=== PATIENT | male | born 1980 | race Caucasian/White ===

== ENCOUNTER 2017-07-19 07:50 | Emergency (ER) | payer OTHER, SELFPAY ==
[2017-07-19 07:51] VITALS: BP 153/91; PULSE 113; RESP 18; TEMP 37.6; O2SAT 98; BMI 35.3
[2017-07-19 07:56] VITALS: O2SAT 98
[2017-07-19] MEDS: Albuterol 2.5 MG/3 ML VIAL.NEB. INHALATION (08:12)
[2017-07-19 08:13] VITALS: PULSE 104; RESP 30; O2SAT 98
--- NOTE | 2017-07-19 08:14 | ED.DCSUM_ITS ---
- ER Visit Summary Date of Service: 07/19/17 Chief Complaint: [] Cough, fatigue History of Present Illness: The patient is a 37 M [] complaining of productive cough beginning yesterday. Patient was reportedly seen in the [place] emergency department and had a negative flu swab and a negative chest x-ray and was discharged on prednisone and an albuterol inhaler. He reports he is feeling worse and reports that he had a similar episode last year that was ultimately diagnosed as pneumonia. He is requesting further evaluation and treatment. Denies fevers. Reports malaise. Patient reports he is a smoker. Physical Examination: [] Afebrile, vital signs stable. 37-year-old male in no acute distress. Cardiovascular exam is regular rate and rhythm. Lungs are clear to auscultation with decreased breath sounds at the bases. Abdomen is soft and nontender. No lower extremity edema. Test Results: [] None. Emergency Department Course and Treatment: [] In light of the negative reported workup yesterday, patient will be treated for bronchitis with one albuterol aerosol, 500 mg orally of azithromycin, 60 mg p.o. prednisone. He will be given a prescription for azithromycin 250 mg #4. He will continue take his prednisone as previously prescribed as well as the albuterol. Treatment Plan: [] Discharge home on outpatient antibiotics with encouraged PCP follow-up. Disposition: [] Discharge, stable. Impression: [] Bronchitis This note was generated with [employer] dictation software. It may contain incorrect words, spelling, and punctuation that were not noted in review of the chart prior to signing ED Disposition - Plan for ED Patient: Chief Complaint: Cough Referrals: Care Physician,No Primary [Primary Care Provider] -
--- NOTE | 2017-07-19 08:14 | ED.DEP ---
ED Disposition - Plan for ED Patient: Disposition: Home or Assisted Living Chief Complaint: Cough Instructions: ED Upper Resp Infec Abx Tx Prescriptions: Azithromycin 250 mg PO DAILY #4 tab Referrals: Care Physician,No Primary [Primary Care Provider] -
[2017-07-19] MEDS: Azithromycin 250 MG Tablet 500 MG PO (08:30)
[2017-07-19] MEDS: predniSONE 20 MG Tablet 60 MG PO (08:30)
[2017-07-19 08:32] VITALS: BP 138/74; PULSE 81; RESP 17; O2SAT 97
== END 2017-07-19 08:33 | disposition home or self-care (01) ==
PROVIDERS: Emergency Provider Emergency Medicine
DX: J40 Bronchitis, not specified as acute or chronic (principal); E66.9 Obesity, unspecified; Z72.0 Tobacco use
CPT/HCPCS: 94640; 99283

== ENCOUNTER 2018-07-05 17:47 | Emergency (ER) | payer OTHER, SELFPAY ==
[2018-07-05 17:47] VITALS: BP 145/78; PULSE 106; RESP 20; TEMP 38.5; O2SAT 95; BMI 34.0
--- NOTE | 2018-07-05 18:15 | RAD_ITS ---
STUDY: X-RAY CHEST REASON FOR EXAM: Male, 38 years old. Fever cough and wheezing. TECHNIQUE: Single AP portable view of the chest. COMPARISON: Prior chest radiograph of April 08, 2014. FINDINGS: Limited inspiration with bibasilar atelectatic changes. Otherwise negative for major consolidation or pleural effusion. There is no demonstrated pleural abnormality. Normal size heart. Normal mediastinum and jonathan. Normal visualized pulmonary arteries. Normal visualized aortic arch and descending thoracic aorta. Normal visualized thoracic spine. Normal visualized ribs, clavicles, and shoulders. There is no demonstrated abnormality of the visualized soft tissue structures of the upper abdomen. RAD/Chest 1 View (Portable) IMPRESSION: Shallow inspiration with focal and generalized bibasilar atelectatic changes. Otherwise negative for major consolidation, pleural effusion or cardiomegaly. Electronically Signed: Cherry Lopez MD at 18:32 EDT , Service support ,
[2018-07-05] MEDS: Acetaminophen 325 MG Tablet 650 MG PO (18:30)
[2018-07-05 18:34] VITALS: PULSE 98; RESP 17; TEMP 38.5; O2SAT 100
--- NOTE | 2018-07-05 18:50 | ED.VIS.GEN ---
History of Present Illness Chief Complaint: Shortness of Breath Detail of Chief Complaint: Flulike symptoms Informant: Patient Onset: - - July 01 Context: Sudden Onset Timing: Intermittent Quality: Respiratory symptoms with myalgias arthralgias Location: Generalized Current Severity: Moderate Maximum Severity: Moderate Worsened by: Illness Relieved by: Nothing Associated Symptoms: Flulike symptoms Narrative: Patient is a 38-year-old male presents with flulike symptoms started Sunday. He felt better went to work on Sunday. Today he states he feels worse. He has headache, myalgias, arthralgias, nonproductive cough and wheezing. He does report fever and chills. He denies photophobia, neck pain or neck stiffness. He denies joint swelling. He does complain of nasal congestion. Past Medical History - Allergies and Home Meds Allergies/Adverse Reactions: Allergies No Known Allergies Allergy (Verified 07/05/18 17:49) Primary Care Physician: Care Physician,No Primary [Primary Care Provider] - Prior records reviewed: No Past Medical History: None Lives: Spouse/ Significant Other, With Family Smoking Status: Current every day smoker Alcohol: None Review of Systems General: Reports: Chills, Fever, Malaise, Subjective - Yes I do not care, Sweats Eyes: Denies: Visual changes - bilaterally, Blurred Vision - bilaterally, Diplopia ENT: Reports: Rhinorrhea, Sore throat. Denies: Bilateral ear pain Cardiovascular: Reports: Heart racing. Denies: Chest pain, Palpitations Respiratory: Reports: Dyspnea, Cough, Dyspnea on exertion. Denies: Orthopnea, Paroxysmal nocturnal dyspnea Gastrointestinal: Denies: Abdominal pain, Nausea, Vomiting, Diarrhea, Melena, Hematochezia Musculoskeletal: Reports: Myalgias, Arthralgias. Denies: Back pain, Extremity Pain Skin: Denies: Rash, Wounds Neurological: Denies: Headache, Weakness, Parasthesia, Numbness Hematologic: Denies: Easy bruising, Easy bleeding Allergy: Denies: Uticaria Physical Exam Vital Signs/Narrative: Vital Signs Temp Pulse Resp BP Pulse Ox 07/05/18 18:34 101.3 F H 98 17 100 07/05/18 17:47 101.3 F H 106 H 20 H 145/78 H 95 Inital Vital Signs reviewed: Yes General: Well nourished, Well developed Head: Normocephalic, Atraumatic Eyes: Perrl, EOMI. Negative for: Pale conjunctiva, Scleral icterus ENT: Dry mucous membranes, Nasal congestion. Negative for: No rhinorrhea Neck: Supple, Nontender, No lymphadenopathy, No JVD Cardiovascular: Regular rhythm, No murmurs, Normal S1, Normal S2, Tachycardia Respiratory: No distress, Wheezing. Negative for: CTA bilaterally Abdomen: Soft, Nontender, Nondistended, Normal bowel sounds, No masses Back: Nontender, Normal Inspection. Negative for: CVA tenderness Extremities: Nontender, No edema Skin: Normal color, No rash Neurological: Alert, Oriented x3, Cranial nerves II-XII grossly intact, Normal Strength, Normal Sensation Psychological: Normal affect, Normal Mood Diagnostic/Tx/Re-eval Chest X-Ray - ED: 2 View, Read by ED Physician, Normal, Heart, Lungs, Mediastinum, Bony Structures, No Acute Disease - Rhythm Strip Rhythm Strip: Sinus Rhythm Rate: 106 Ectopy: None - Medical Decision Making Patient does appear ill. He does have wheezing left greater than right. Was instructed on use of metered-dose inhaler. Chest x-ray was obtained to evaluate for pneumonia. Influenza swab was also obtained. Chest x-ray was unremarkable. Influenza rapid screen was negative. Patient was informed since he is a smoker he may have a cough for 4 weeks. He was informed he may be ill for another 7-10 days. Since he is insured without physician he was referred to Dr. Stephan Nunez. Patient's wheezing improved after albuterol MDI administration ED Disposition - Plan for ED Patient: Disposition: Home or Assisted Living Diagnosis: Acute asthmatic bronchitis, Fever Instructions: ED Upper Resp Infec No Abx Tx Referrals: Care Physician,No Primary [Primary Care Provider] - Ganesh Nunez MD [STAFF PHYSICIAN] - 1 Week if not improving Additional Instructions: 2 puffs of albuterol inhaler every 2-4 hours while awake for the next 3 days then every 4-6 hours as needed.
[2018-07-05 19:38] VITALS: PULSE 87; RESP 19; O2SAT 98
== END 2018-07-05 19:39 | disposition home or self-care (01) ==
PROVIDERS: Emergency Provider Emergency Medicine
DX: J45.909 Unspecified asthma, uncomplicated (principal); R50.9 Fever, unspecified; F17.200 Nicotine dependence, unspecified, uncomplicated
CPT/HCPCS: 71045; 87804; 94640; 99283